=== PATIENT | male | born 1985 | race Two or more races ===

== ENCOUNTER 2024-12-05 11:56 | Emergency (ER) | payer BC, MEDICAID, SELFPAY ==
[2024-12-05 11:57] VITALS: BMI 25.7
--- NOTE | 2024-12-05 12:00 | EKG_ITS ---
[facility] Test Date: 2024-12-05 Pat Name: HUNG SCHNEIDER Department: Room: - Gender: Male Clinical Resource Director: : 1985 Requested By: Jean Claude Pfeiffer (NESTOR) Order Number: [id number] Reading MD: Jean Claude Pfeiffer (BALLISTICS TEACHER) Measurements Intervals [place] Rate: 101 P: 16 LA: 112 QRS: 73 QRSD: 97 T: 26 QT: 326 QTc: 422 Interpretive Statements SINUS TACHYCARDIA WITH SHORT LA INTERVAL ABNORMAL RHYTHM ECG No previous ECG available for comparison /[id number]/[email or web address]/[id number].pdf
[2024-12-05 12:10] VITALS: BP 131/88; PULSE 100; RESP 19; TEMP 36.7; O2SAT 97; BMI 27.0
--- NOTE | 2024-12-05 12:32 | XR_ITS ---
Examination: CT cervical spine without contrast 2-D sagittal reconstructions 2-D coronal reconstructions 3-D reconstructions. Exam date and time:December 05, 2024 1358 hrs. Indications: Patient fell today with injury to the neck, neck pain CTDI:vol (mGy) 8.40 DLP: (mGycm) 243 Technique: Multiple 2 mm axial sections of the cervical spine have been obtained. The coronal and sagittal reconstructions have been obtained. 3-D reconstructions have been obtained. Low dose protocols were performed. One or more of the following dose reduction techniques were used; automated exposure control, adjustment of the mA and/or KV according to patient size, use of iterative reconstruction technique. Findings: Axial sections demonstrate intact base of the skull. C1 exhibit satisfactory relationship to the odontoid. No acute cervical vertebral body fracture seen. Alignment posterior spinous processes satisfactory. Impression: No acute cervical fracture.
--- NOTE | 2024-12-05 12:32 | XR_ITS ---
Examination: PA lateral chest 2 views Technique: Upright PA lateral chest 2 views Exam date and time: December 05, 2024 1250 hrs. Indications: Shortness of breath beginning 2 days ago. Findings: Early pneumonia left base Normal heart size The osseous structures are intact Impression: Early pneumonia left base
--- NOTE | 2024-12-05 12:32 | XR_ITS ---
Examination: CT brain head without contrast. 2-D sagittal coronal reconstructions Date and time of exam:December 05, 2024 1358 hrs. Indications: Headache lightheadedness today CTDI: vol (mGy):54.4 DLP: (mGycm):1034 Technique: Multiple CT axial sections of the brain have been obtained, 5 mm slice thickness. Contrast has not been administered. 2-D sagittal, coronal reconstructions have been obtained Low dose protocols were performed. One or more of the following dose reduction techniques were used; automated exposure control, adjustment of the mA and/or KV according to patient size, use of iterative reconstruction technique. Findings: No significant ventricular enlargement. Intra-axial or extra-axial hemorrhage density is not seen. No mass effect or midline shift Basal cisterns are not remarkable. Fourth ventricle is midline. Cranial vault intact. Impression: Negative for acute hemorrhage, mass effect or midline shift Advise clinical correlation and follow-up accordingly
--- NOTE | 2024-12-05 12:45 | EDNOTE_ITS ---
<Statement entered by Felicia Sandoval MD - 12/05/24 15:19> As co-signing physician, I was present and available for consult prn. I concur with the plan and care as documented by the midlevel provider. ED Syncope RME/HPI General Chief Complaint: Syncope / Near Syncope Stated Complaint: syncopal episode at the gym, hit to back head Time Seen by Provider: 12/05/24 12:42 Arrival date/time: 12/05/24 11:56 RME / HPI RME / HPI narrative: 39-year-old male patient with no past medical history except for BPH came in for evaluation regarding syncopal episode. Patient was in the gym, doing routine exercises, suddenly developed dizziness and lost consciousness. Patient hit his head on the floor sustaining contusion to the scalp occipital area. Patient denies any neck pain. Patient told me that he just come off from a cold last week. Patient denies any chest pain denies any abdominal pain. Denies any similar episode in the past. Patient is ambulatory. Related Data Home Medications ?Medication ?Instructions ?Recorded ?Confirmed celecoxib 200 mg capsule (Celebrex) 200 mg PO BID 12/3002/29/20 finasteride 1 mg tablet 1 mg PO QDAY 02/29/20 omeprazole 20 mg tablet,delayed 20 mg PO QDAY 02/29/20 03/01/20 release Previous Rx's ?Medication ?Instructions ?Recorded docusate sodium 100 mg capsule 100 mg PO BID #30 caps 03/01/20 (Colace) hydrocodone 5 mg-acetaminophen 325 1 tab PO Q6H PRN pa in #20 tabs 03/01/20 mg tablet ([place]wood) Allergies Allergy/AdvReac Type Severity Reaction Status Date / Time bee venom protein (honey bee) Allergy Severe swelling Verified 02/29/20 06:18 Review of Systems Review of Systems Narrative Review of Systems: Review of system reviewed and within normal limits except mentioned in HPI ED Exam Narrative Physical exam: VITAL SIGNS: Reviewed. GENERAL APPEARANCE: Alert and interactive, follows commands, no acute distress, HEAD AND FACE: 3 x 3 cm contusion, swelling, scalp, occipital area ENT: PERRL, pink conjunctivitis, eyelid no trauma, Mucous membrane moist. NECK: Supple, nontender, no nuchal rigidity. CHEST: No tenderness, no crepitus, no paradoxical movement, no retractions. LUNGS: Clear, well ventilated, symmetric, no rales, no wheezing, no ronchi, no stridor, good breath sounds bilaterally. HEART: Regular rate, regular rhythm, no murmur, no gallops. ABDOMEN: Soft, positive bowel sounds, nondistended, no guarding, nontender, no rebound, no masses, RECTAL: Deferred. GENITAL: Deferred. NEUROLOGICAL: Gross motor function intact sensory function intact, Appropriate for age. MUSCULOSKELETAL: low back nontender, full range of motion. EXTREMITIES: Nontender, full range of motion. SKIN: Color pink, dry, no rash, no lacerations, no abrasions, no contusions. LYMPHATICS: Deferred. Course Quality Measures none Orders Category Date Time Status EKG (ED ONLY) *Do not use* NOW Care 12/05/24 12:[address] cervical spine wo con Stat Exams 12/05/24 12:[address] head/brain wo con Stat Exams 12/05/24 12:32 Completed EKG (ED Only) Stat Exams 12/05/24 12:00 Draft XR chest 2V Stat Exams 12/05/24 12:32 Taken BNP [B-Type Natriuretic Peptide] Stat Lab 12/05/24 12:55 Completed CBC Stat Lab 12/05/24 12:55 Completed Comprehensive Metabolic Panel Stat Lab 12/05/24 12:55 Completed Troponin I Stat Lab 12/05/24 12:55 Completed Vital Signs Vital signs: Vital Signs Temperature 98.1 F 12/05/24 12:10 Pulse Rate 100 12/05/24 12:10 Respiratory Rate 19 12/05/24 12:10 Blood Pressure 131/88 H 12/05/24 12:10 Pulse Oximetry (%) 97 12/05/24 12:10 Oxygen Delivery Method Room Air 12/05/24 12:10 Syncope MDM Narrative MDM Narrative:: 39-year-old male patient with no past medical history except for BPH came in for evaluation regarding syncopal episode. Patient was in the gym, doing routine exercises, suddenly developed dizziness and lost consciousness. Patient hit his head on the floor sustaining contusion to the scalp occipital area. Patient denies any neck pain. Patient told me that he just come off from a cold last week. Patient denies any chest pain denies any abdominal pain. Denies any similar episode in the past. Patient is ambulatory. Patient's CT scan of the head came back unremarkable. Patient's workup also came back normal except for slight leukocytosis. Chest x-ray came back with no acute pathology noted. CT scan of the cervical spine also came back normal. EKG showed normal sinus rhythm, ventricular rate of 101 bpm, no ST segment elevation depression noted. Results discussed with the patient. No recurrence of syncope or near syncope in the emergency room. Patient is ambulatory. Patient appears nontoxic and hemodynamically stable. Patient discharged home and instructed to follow-up with primary care provider in 24 to 48 hours. Instructed to return to the emergency department immediately if worsening of symptoms Patient data External records reviewed:: None Clinical information provided by:: none Social determinants that could affect healthcare access:: none Patient has the following chronic illnesses:: BPH How is presenting disease/condition affected by chronic disease/condition?: uneffected by Evaluation data The following diagnostics were reviewed and interpreted by me:: lab results, radiology exam(s) and EKG tracing(s) Lab and/or radiology exams considered but not ordered:: None Interpretation Summary: See results in [facility] Medications / Prescriptions Medications or Prescriptions considered but not ordered:: None Medication administrations:: None Consultations Consultation(s) initiated? (list below): No Diagnosis Syncope Differential Diagnosis: vasovagal syncope and dehydration Most likely diagnosis given after review of the tests above:: Vasovagal syncope Admission Indicated Admission indicated?: not indicated Admission Request Was there a request for admission?: No Disposition Plan Disposition Plan: Discharge Discharge Attestation Discharge Attestation: The patient and all family members were given an opportunity to ask questions and understood the discharge instructions. Discharge instructions specifically effects, indications for sooner follow up or return to the emergency department, and the expected course of current diagnosis. Patient condition: Stable Discharge Plan Plan Patient Disposition: HOME (Self Care) Disposition Comment: stable Prescriptions/Referrals Prescriptions/Med Rec: No Action celecoxib [Celebrex] 200 mg capsule 200 mg PO BID finasteride 1 mg Tablet 1 mg PO QDAY omeprazole 20 mg Tablet,Delayed Release (Dr/Ec) 20 mg PO QDAY docusate sodium [Colace] 100 mg capsule 100 mg PO BID Qty: 30 0RF hydrocodone-acetaminophen [[place]] 5-325 mg tablet 1 tab PO Q6H MDD 4 PRN (Reason: pain) Qty: 20 0RF Referrals: No Primary/Family,Physician [Primary Care Provider] - In 1 week Problem List Clinical Impression: Vasovagal syncope Patient/Caregiver Discharge Instructions Discharge Activity: activity as tolerated Education Materials: Understanding Vasovagal Syncope Additional Instructions: Thank you for the opportunity for serving you today. You are stable for discharged . You are advised to: Follow-up with your PCP in 1 to 2 days Return to ED for worsening of symptoms Increase oral fluids Print Language: Slovenian Stand Alone Forms: [place] Award Info., Work/School Release, Patient Portal Info Letter PA/WOODEN FENCE E[employer]OR Supervising Physician PA/[employer] E[employer]OR Supervising Physician: Md Lori
[2024-12-05 13:05] LABS: Basophils # (Auto) 0.1 Thou/mm3 (0.0-0.2); Basophils % (Auto) 0 % (0-2.5); Eosinophils % (Auto) 0 % (0-10); Hematocrit 41.2 % (41.0-53.0); Hemoglobin 14.6 g/dL (13.5-16.0); Immature Granulocytes % (Auto) 1 % (0-0); Immature Granulocytes Auto 0.07 Thou/mm3 (0.00-0.00); Lymphocytes % (Auto) 7 % (10-50); Mean Corpuscular HGB Conc 35.4 g/dl (31.0-37.0); Mean Corpuscular Hemoglobin 30.5 pg (25.0-35.0); Mean Corpuscular Volume 86 fL (80-100); Monocytes # (Auto) 1.1 Thou/mm3 (0.0-0.8); Monocytes % (Auto) 7 % (0-12); Neutrophils # (Auto) 12.3 Thou/mm3 (1.8-7.7); Neutrophils % (Auto) 85 % (37-80); Nucleated Red Blood Cell % 0 /100 WBC (0); Platelet Count 260 Thou/mm3 (140-440); RDW Standard Deviation 38.9 fL (35.1-43.9); Red Blood Count 4.79 Miln/mm3 (4.50-5.90); White Blood Count 14.5 Thou/mm3 (3.8-10.6)
[2024-12-05 13:39] LABS: Alanine Aminotransferase 23 U/L (10-49); Albumin, Serum 4.8 gm/dL (3.5-5.0); Albumin/Globulin Ratio 1.8 (1.2-2.2); Alkaline Phosphatase 79 U/L (46-116); Anion Gap 9 (7-16); Aspartate Amino Transferase 20 U/L (0-34); BUN/Creatinine Ratio 16 Ratio (12-20); Bilirubin,Total 0.3 mg/dL (0.3-1.2); Blood Urea Nitrogen 16 mg/dL (9-23); Calcium 9.7 mg/dL (8.3-10.6); Calcium (Corrected) 9.7 mg/dL (8.5-10.1); Carbon Dioxide 22.5 mMol/L (20.0-31.0); Chloride 107 mMol/L (98-107); Estimated Creatinine Clearance 99.2 mL/min (>60); Globulin 2.6 gm/dL (2.3-3.5); Glucose 96 mg/dL (74-106); Osmolality,Calculated 276 (275-295); Potassium 3.8 mMol/L (3.4-5.1); Sodium 138 mMol/L (136-145); Total Protein 7.4 gm/dL (5.7-8.2); Troponin I < 0.002 ng/mL (0.0-0.045); eGFR > 60 See Note
[2024-12-05 14:00] LABS: B-Type Natriuretic Peptide < 20 pg/mL (0-100)
[2024-12-05 14:27] VITALS: BP 129/83; PULSE 95; RESP 20; TEMP 36.8; O2SAT 97
== END 2024-12-05 14:52 | disposition home or self-care (01) ==
PROVIDERS: Nurse Practitioner Primary Care; Emergency Provider Emergency Medicine
DX: R55 Syncope and collapse (principal); S00.03XA Contusion of scalp, initial encounter; D72.829 Elevated white blood cell count, unspecified; N40.0 Benign prostatic hyperplasia without lower urinary tract symptoms; W19.XXXA Unspecified fall, initial encounter; Y93.89 Activity, other specified; Y92.39 Other specified sports and athletic area as the place of occurrence of the external cause
CPT/HCPCS: 36415; 70450; 71046; 72125; 80053; 83880; 84484; 85025; 93005; 99284